=== PATIENT | female | born 1935 | race Caucasian/White ===

== ENCOUNTER 2020-12-20 11:42 | Inpatient (IN) | payer MEDICARE, BC ==
[~2020-12-20 11:42] MED LIST: Iopamidol-370 76% 500 ML 1 ML ONE
[2020-12-20] MEDS ORDERED: Midazolam HCl 5 mg/ml Vial ONE (17:02)
[2020-12-20] MEDS ORDERED: Midazolam HCl 2 mg/2 ml Vial ONE (17:04)
[2020-12-20] MEDS ORDERED: Heparin 5,000 UNITS/ML VIAL SC SCH (21:00)
[2020-12-20] MEDS: Sodium Chloride 0.9% 1,000 ML IV SCH (21:33)
[2020-12-20 22:23] LABS: Iron 38 ug/dL (50-170); Iron Binding Capacity, Total 395 mcg/dL (265-497); Magnesium 1.8 mg/dL (1.6-2.6); Phosphorus 2.2 mg/dL (2.3-4.7)
[2020-12-20 22:42] LABS: CEA, Serum 2.13 ng/mL (< or = 5.0); Ferritin 60.83 ng/mL (10-291)
[2020-12-21] MEDS ORDERED: PHOS-NAK 1 PKT PACK PO SCH (00:15)
[2020-12-21] MEDS: Ondansetron PF 4 MG/2 ML Vial IVP PRN (00:50)
[2020-12-21 05:53] LABS: #Lymphocytes 0.4 thou/uL (1.20-3.40); #Monocytes 0.9 thou/uL (0.11-0.59); %Eosinophils 0.2 % (0.0-10.0); %Lymphocytes 4.7 % (21.0-51.0); %Monocytes 9.1 % (0.0-10.0); Hemoglobin 7.2 g/dL (12.0-16.0); Mean Corpuscular HGB CONC 33.5 g/dL (32.0-36.0); Mean Corpuscular Hemoglobin 30.9 pg (27.0-31.0); Mean Corpuscular Volume 92.3 fL (78.0-98.0); Mean Platelet Volume 7.1 fL (7.4-10.4); Platelet Count 231 thou/uL (130-400); RBC Distribution Width 14.7 % (11.5-14.5); Red Blood Cell (RBC) Count 2.34 mill/uL (4.20-5.40); White Blood Cell (WBC) Count 9.3 thou/uL (4.8-10.8)
[2020-12-21 06:03] LABS: INR-International Normal Ratio 1.1; Prothrombin Time 14.4 sec (12.0-14.7)
[2020-12-21 06:04] LABS: PTT 28.4 sec (22.9-36.1)
[2020-12-21 06:07] LABS: Anion Gap 11 mmol/L (10-20); BUN (Urea Nitrogen) 20 mg/dL (9.8-20.1); Calc. Creatinine Clearance 40 mL/min (70-130); Calcium 8.4 mg/dL (7.8-10.44); Carbon Dioxide 28 mmol/L (23-31); Chloride 95 mmol/L (98-107); Glucose 116 mg/dL (83-110); Potassium 3.4 mmol/L (3.5-5.1); Sodium 131 mmol/L (136-145)
[2020-12-21] MEDS: Sodium Chloride 0.9% 1,000 ML IV SCH ×2 (07:50→18:03)
[2020-12-21] MEDS: Spironolactone 25 MG TAB PO SCH (08:30)
[2020-12-21] MEDS: Levothyroxine Sodium 50 MCG TAB PO SCH (08:30)
[2020-12-21] MEDS: Atorvastatin Calcium 10 MG TAB PO SCH (08:30)
[2020-12-21] MEDS ORDERED: Warfarin Sodium 3 MG TAB PO SCH (09:00)
[2020-12-21 16:21] LABS: SARS-CoV-2 PCR by NAA Not Detected (NotDetected)
[2020-12-22] MEDS: Sodium Chloride 0.9% 1,000 ML IV SCH ×3 (04:28→22:37)
[2020-12-22 06:05] LABS: INR-International Normal Ratio 1.2; Prothrombin Time 15.6 sec (12.0-14.7)
[2020-12-22 06:06] LABS: PTT 39.8 sec (22.9-36.1)
[2020-12-22] MEDS: Spironolactone 25 MG TAB PO SCH (09:07)
[2020-12-22] MEDS: Atorvastatin Calcium 10 MG TAB PO SCH (09:07)
[2020-12-22] MEDS: Ferrous Sulfate 325 MG TAB PO SCH (09:07)
[2020-12-22] MEDS: Levothyroxine Sodium 50 MCG TAB PO SCH (09:07)
[2020-12-22] MEDS: Cyanocobalamin (Vitamin B-12) 1,000 MCG TAB PO SCH (09:07)
[2020-12-22] MEDS ORDERED: Pantoprazole 40 MG VIAL IVP SCH ×2 (10:04→10:15)
[2020-12-22 12:00] LABS: Albumin 3.3 g/dL (3.4-4.8)
[2020-12-22 12:02] LABS: Calcium 7.8 mg/dL (7.8-10.44); Chloride 102 mmol/L (98-107); Potassium 3.5 mmol/L (3.5-5.1); Sodium 133 mmol/L (136-145)
[2020-12-22 12:03] LABS: Glucose 105 mg/dL (83-110); Protein, Total 6.3 g/dL (5.8-8.1)
[2020-12-22 12:04] LABS: Anion Gap 17 mmol/L (10-20); Carbon Dioxide 18 mmol/L (23-31)
[2020-12-22 12:05] LABS: Bilirubin, Total 1.4 mg/dL (0.2-1.2)
[2020-12-22 12:06] LABS: Alkaline Phosphatase 64 U/L (40-110); Calc. Creatinine Clearance 38 mL/min (70-130)
[2020-12-22 12:07] LABS: BUN (Urea Nitrogen) 25 mg/dL (9.8-20.1)
[2020-12-22 12:08] LABS: AST (SGOT) 34 U/L (5-34)
[2020-12-22 12:09] LABS: ALT (SGPT) 15 U/L (8-55)
[2020-12-22 12:23] LABS: #Lymphocytes 0.5 thou/uL (1.20-3.40); #Monocytes 0.8 thou/uL (0.11-0.59); #Neutrophils 8.5 thou/uL (1.40-6.50); %Eosinophils 0.2 % (0.0-10.0); %Lymphocytes 4.8 % (21.0-51.0); %Monocytes 8.6 % (0.0-10.0); %Neutrophils 86.4 % (42.0-75.0); Hemoglobin 7.5 g/dL (12.0-16.0); Mean Corpuscular HGB CONC 31.8 g/dL (32.0-36.0); Mean Corpuscular Hemoglobin 29.6 pg (27.0-31.0); Mean Corpuscular Volume 93.3 fL (78.0-98.0); Mean Platelet Volume 7.1 fL (7.4-10.4); Platelet Count 295 thou/uL (130-400); RBC Distribution Width 15.3 % (11.5-14.5); Red Blood Cell (RBC) Count 2.52 mill/uL (4.20-5.40); White Blood Cell (WBC) Count 9.8 thou/uL (4.8-10.8)
[2020-12-23 06:23] LABS: INR-International Normal Ratio 1.2; PTT 38.3 sec (22.9-36.1); Prothrombin Time 15.6 sec (12.0-14.7)
[2020-12-23 06:33] LABS: ALT (SGPT) 16 U/L (8-55); AST (SGOT) 24 U/L (5-34); Albumin 3.3 g/dL (3.4-4.8); Alkaline Phosphatase 55 U/L (40-110); Anion Gap 14 mmol/L (10-20); BUN (Urea Nitrogen) 27 mg/dL (9.8-20.1); Bilirubin, Total 1.3 mg/dL (0.2-1.2); Calc. Creatinine Clearance 38 mL/min (70-130); Calcium 7.8 mg/dL (7.8-10.44); Carbon Dioxide 22 mmol/L (23-31); Chloride 103 mmol/L (98-107); Globulin 2.8 g/dL (2.4-3.5); Glucose 109 mg/dL (83-110); Potassium 3.2 mmol/L (3.5-5.1); Protein, Total 6.1 g/dL (5.8-8.1); Sodium 136 mmol/L (136-145)
[2020-12-23] MEDS: Atorvastatin Calcium 10 MG TAB PO SCH (08:12)
[2020-12-23] MEDS: Cyanocobalamin (Vitamin B-12) 1,000 MCG TAB PO SCH (08:12)
[2020-12-23] MEDS: Spironolactone 25 MG TAB PO SCH (08:12)
[2020-12-23] MEDS: Ferrous Sulfate 325 MG TAB PO SCH (08:12)
[2020-12-23] MEDS: Levothyroxine Sodium 50 MCG TAB PO SCH (08:13)
[2020-12-23] MEDS: Sodium Chloride 0.9% 1,000 ML IV SCH ×2 (08:13→17:39)
[2020-12-23] MEDS: Pantoprazole 40 MG VIAL IVP SCH (08:13)
[2020-12-23 09:36] LABS: #Basophils 0.1 thou/uL (0.0-0.2); #Lymphocytes 0.3 thou/uL (1.20-3.40); #Monocytes 0.7 thou/uL (0.11-0.59); #Neutrophils 4.7 thou/uL (1.40-6.50); %Basophils 1.9 % (0.0-1.0); %Eosinophils 0.8 % (0.0-10.0); %Lymphocytes 4.5 % (21.0-51.0); %Monocytes 11.5 % (0.0-10.0); %Neutrophils 81.3 % (42.0-75.0); Mean Corpuscular HGB CONC 32.6 g/dL (32.0-36.0); Mean Corpuscular Hemoglobin 30.2 pg (27.0-31.0); Mean Corpuscular Volume 92.7 fL (78.0-98.0); Mean Platelet Volume 7.1 fL (7.4-10.4); Platelet Count 282 thou/uL (130-400); RBC Distribution Width 15.3 % (11.5-14.5); Red Blood Cell (RBC) Count 2.33 mill/uL (4.20-5.40); White Blood Cell (WBC) Count 5.7 thou/uL (4.8-10.8)
[2020-12-23] MEDS ORDERED: Potassium Chloride 20 MEQ in Premix Bag 1 BAG IVPB SCH ×2 (11:14→12:00)
[2020-12-23 20:28] LABS: Magnesium 2.5 mg/dL (1.6-2.6)
[2020-12-23 20:42] LABS: Phosphorus 1.8 mg/dL (2.3-4.7)
[2020-12-23] MEDS ORDERED: Potassium Phosphate 15 MMOL in Sodium Chloride 0.9% 250 ML 250 ML IVPB SCH (21:30)
[2020-12-23] MEDS: Potassium Chloride 20 MEQ in Premix Bag 1 BAG IVPB SCH (21:35)
[2020-12-23] MEDS: Ondansetron PF 4 MG/2 ML Vial IVP PRN (22:58)
[2020-12-23] MEDS ORDERED: Lorazepam 2 MG/ML VIAL SLOW IVP SCH (23:45)
[2020-12-23] MEDS ORDERED: Morphine 2 MG/ML VIAL SLOW IVP SCH (23:45)
[2020-12-23] MEDS ORDERED: Benzocaine 20% Spray 60 ML CAN FS SCH (23:45)
[2020-12-24] MEDS: Potassium Chloride 20 MEQ in Premix Bag 1 BAG IVPB SCH (01:15)
[2020-12-24] MEDS: Sodium Chloride 0.9% 1,000 ML IV SCH ×2 (05:15→17:56)
[2020-12-24] MEDS ORDERED: Phytonadione 5 MG in Sodium Chloride 0.9% 50 ML IVPB SCH (06:00)
[2020-12-24 06:24] LABS: ALT (SGPT) 14 U/L (8-55); AST (SGOT) 22 U/L (5-34); Albumin 3.5 g/dL (3.4-4.8); Alkaline Phosphatase 60 U/L (40-110); Anion Gap 12 mmol/L (10-20); BUN (Urea Nitrogen) 29 mg/dL (9.8-20.1); Bilirubin, Total 1.6 mg/dL (0.2-1.2); Calc. Creatinine Clearance 36 mL/min (70-130); Calcium 7.8 mg/dL (7.8-10.44); Carbon Dioxide 24 mmol/L (23-31); Chloride 106 mmol/L (98-107); Globulin 2.9 g/dL (2.4-3.5); Glucose 129 mg/dL (83-110); Potassium 4.4 mmol/L (3.5-5.1); Protein, Total 6.4 g/dL (5.8-8.1); Sodium 138 mmol/L (136-145)
[2020-12-24 09:15] LABS: INR-International Normal Ratio 1.3; PTT 32.8 sec (22.9-36.1); Prothrombin Time 15.8 sec (12.0-14.7)
[2020-12-24] MEDS: Pantoprazole 40 MG VIAL IVP SCH (11:21)
[2020-12-24] MEDS: metroNIDAZOLE 500 MG in Premix Bag 1 BAG IVPB SCH ×2 (11:21→18:21)
[2020-12-24] MEDS: Spironolactone 25 MG TAB PO SCH (11:22)
[2020-12-24] MEDS: Atorvastatin Calcium 10 MG TAB PO SCH (11:22)
[2020-12-24] MEDS: Cefepime 2 GM in Sodium Chloride 0.9% 100 ML IVPB SCH ×2 (11:22→23:28)
[2020-12-24] MEDS: Cyanocobalamin (Vitamin B-12) 1,000 MCG TAB PO SCH (11:22)
[2020-12-24] MEDS: Ferrous Sulfate 325 MG TAB PO SCH (11:22)
[2020-12-24] MEDS: Levothyroxine Sodium 50 MCG TAB PO SCH (11:22)
[2020-12-24 11:44] LABS: #Lymphocytes 0.3 thou/uL (1.20-3.40); #Monocytes 0.7 thou/uL (0.11-0.59); #Neutrophils 3.9 thou/uL (1.40-6.50); %Eosinophils 0.3 % (0.0-10.0); %Lymphocytes 6.8 % (21.0-51.0); %Monocytes 13.2 % (0.0-10.0); %Neutrophils 79.7 % (42.0-75.0); Hemoglobin 8.8 g/dL (12.0-16.0); Mean Corpuscular HGB CONC 32.4 g/dL (32.0-36.0); Mean Corpuscular Hemoglobin 29.8 pg (27.0-31.0); Mean Corpuscular Volume 91.8 fL (78.0-98.0); Mean Platelet Volume 6.9 fL (7.4-10.4); Platelet Count 312 thou/uL (130-400); Red Blood Cell (RBC) Count 2.94 mill/uL (4.20-5.40); White Blood Cell (WBC) Count 4.9 thou/uL (4.8-10.8)
[2020-12-24 11:53] LABS: INR-International Normal Ratio 1.3; PTT 36.1 sec (22.9-36.1); Prothrombin Time 15.8 sec (12.0-14.7)
[2020-12-24 18:26] LABS: CKMB 2.9 ng/mL (0-6.6)
[2020-12-24] MEDS ORDERED: Morphine 2 MG/ML VIAL SLOW IVP PRN (19:07)
[2020-12-24] MEDS ORDERED: Nitroglycerin 2% Ointment 1 INCH/1 GM Packet TOP PRN (20:00)
[2020-12-25 05:13] LABS: #Lymphocytes 0.4 thou/uL (1.20-3.40); #Monocytes 0.6 thou/uL (0.11-0.59); #Neutrophils 4.5 thou/uL (1.40-6.50); %Eosinophils 0.9 % (0.0-10.0); %Monocytes 10.2 % (0.0-10.0); Hemoglobin 8.4 g/dL (12.0-16.0); Mean Corpuscular Hemoglobin 29.9 pg (27.0-31.0); Mean Corpuscular Volume 93.5 fL (78.0-98.0); Mean Platelet Volume 7.1 fL (7.4-10.4); Platelet Count 263 thou/uL (130-400); RBC Distribution Width 15.2 % (11.5-14.5); Red Blood Cell (RBC) Count 2.81 mill/uL (4.20-5.40); White Blood Cell (WBC) Count 5.5 thou/uL (4.8-10.8)
[2020-12-25 05:24] LABS: ALT (SGPT) 14 U/L (8-55); AST (SGOT) 24 U/L (5-34); Albumin 3.2 g/dL (3.4-4.8); Alkaline Phosphatase 50 U/L (40-110); Anion Gap 14 mmol/L (10-20); BUN (Urea Nitrogen) 29 mg/dL (9.8-20.1); Bilirubin, Total 1.4 mg/dL (0.2-1.2); Calc. Creatinine Clearance 39 mL/min (70-130); Calcium 7.4 mg/dL (7.8-10.44); Carbon Dioxide 20 mmol/L (23-31); Chloride 112 mmol/L (98-107); Globulin 2.7 g/dL (2.4-3.5); Glucose 103 mg/dL (83-110); Potassium 4.2 mmol/L (3.5-5.1); Protein, Total 5.9 g/dL (5.8-8.1); Sodium 142 mmol/L (136-145)
[2020-12-25 05:28] LABS: INR-International Normal Ratio 1.3; PTT 37.8 sec (22.9-36.1); Prothrombin Time 15.9 sec (12.0-14.7)
[2020-12-25] MEDS: metroNIDAZOLE 500 MG in Premix Bag 1 BAG IVPB SCH ×2 (05:28→10:30)
[2020-12-25] MEDS: Sodium Chloride 0.9% 1,000 ML IV SCH ×2 (05:29→15:58)
[2020-12-25 05:47] LABS: CKMB 3.6 ng/mL (0-6.6)
[2020-12-25] MEDS ORDERED: Morphine 2 MG/ML VIAL SLOW IVP PRN (06:57)
[2020-12-25] MEDS: Spironolactone 25 MG TAB PO SCH (09:32)
[2020-12-25] MEDS: Ferrous Sulfate 325 MG TAB PO SCH (09:32)
[2020-12-25] MEDS: Levothyroxine Sodium 50 MCG TAB PO SCH (09:32)
[2020-12-25] MEDS: Atorvastatin Calcium 10 MG TAB PO SCH (09:32)
[2020-12-25] MEDS: Cyanocobalamin (Vitamin B-12) 1,000 MCG TAB PO SCH (09:32)
[2020-12-25 09:35] LABS: Troponin I 0.069 ng/mL (< 0.028)
[2020-12-25] MEDS: Pantoprazole 40 MG VIAL IVP SCH (10:30)
[2020-12-25] MEDS: Cefepime 2 GM in Sodium Chloride 0.9% 100 ML IVPB SCH (12:27)
[2020-12-25 16:04] VITALS: BP 98/56; TEMP 98
== END 2020-12-25 17:24 | disposition hospice, inpatient (51) | DRG 388 ==
LOC: RAD 11:42 → SURG B 19:00 → 2NO 12-24 18:58
PROVIDERS: ADMIT Family Medicine; ATTEND Family Medicine
DX: K56.609 Unspecified intestinal obstruction, unspecified as to partial versus complete obstruction (principal); L89.894 Pressure ulcer of other site, stage 4; J69.0 Pneumonitis due to inhalation of food and vomit; Z66 Do not resuscitate; I21.4 Non-ST elevation (NSTEMI) myocardial infarction; E87.1 Hypo-osmolality and hyponatremia; I50.32 Chronic diastolic (congestive) heart failure; E83.39 Other disorders of phosphorus metabolism; E86.0 Dehydration; D50.9 Iron deficiency anemia, unspecified; Z20.822 Contact with and (suspected) exposure to COVID-19; E87.6 Hypokalemia; E78.5 Hyperlipidemia, unspecified; E03.9 Hypothyroidism, unspecified; K74.60 Unspecified cirrhosis of liver; I48.0 Paroxysmal atrial fibrillation; K22.70 Barrett's esophagus without dysplasia; E87.8 Other disorders of electrolyte and fluid balance, not elsewhere classified; Z85.048 Personal history of other malignant neoplasm of rectum, rectosigmoid junction, and anus; Z90.49 Acquired absence of other specified parts of digestive tract
CPT/HCPCS: 0240U; 36415; 36416; 36430; 70450; 71045; 74018; 74177; 80048; 80053; 82378; 82553; 82607; 82728; 82746; 83540; 83550; 83605; 83735; 84100; 84145; 84484; 85025; 85610; 85730; 86140; 86850; 86900; 86901; 93005; 93010; 93306; 96374; 96375; C9113; J0692; J2060; J2250; J2270; J2405; J3430; J3480; J3490; J7050; P9016; Q9967; U0003; U0005